=== PATIENT | male | born 1970 | race Caucasian/White ===

== ENCOUNTER 2016-04-03 23:09 | Emergency (ER) | payer OTHER ==
[~2016-04-03] VITALS: Ht 182.9 cm; Wt 104.3 kg
--- NOTE | ~2016-04-03 | EKG ---
[place] [address] [facility] [place] [address] ELECTROCARDIOGRAM REPORT Name: JUAN ANTONIO MUSTAFA 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 : 1970 Requested By: Haylie Ray Order Number: [id number] MD: Juan Antonio Plasencia Measurements Intervals [place] Rate: 89 P: -17 TX: 122 QRS: 34 QRSD: 90 T: 60 QT: 357 QTc: 435 Interpretive Statements Sinus rhythm Low voltage, precordial leads Compared to ECG 02/15/2016 17:41:59 Low QRS voltage now present Sinus tachycardia no longer present Electronically Signed On 04-04-2016 9:32:19 QC MANAGER by Juan Antonio Plasencia [email or web address] <ELECTRONICALLY SIGNED> By: Juan Antonio Plasencia MD, [facility] 04/04/16 0932 2314 13 Juan Antonio Plasencia MD, [facility] /EPI
[~2016-04-03 23:09] MED LIST: ABILIFY 5 MG TAB5 M1 OR; ABILIFY OR; ABILIFY10 MG PO; AKWA TEARS EYE15 ML; ALPRAZOLAM1 M1 PO; AMBIEN 10 MG TA10 MG PO; ASPIR 8181 MG PO; ASPIRIN325; ASPIRIN325 PO; BUDEPRION SR100 MG PO; CARAFATE 1 GM TA1 G1 PO; CARVEDILOL12.5 MG OR; CARVEDILOL6.25 MG PO; CELEXA 20 MG TA20 M1; CELEXA 20 MG TA20 M1 PO; CELEXA10 MG PO; CELEXA40 MG PO; CIPROFLOXACIN500 M3 PO; COREG OR; COREG PO; COUMADIN 4 MG TA4 M1 PO; COUMADIN 5 MG TA5 M1; COUMADIN7.5 MG PO; DESYREL50 MG; DESYREL50 MG PO; DIAZEPAM 5 MG5 M1 PO; EFFIENT10 MG PO; ENOXAPARIN100 MG/11 SUBQ; FLORINEF ACETA0.1 MG PO; HYDROXYZINE PAM50 MG PO; IMDUR 30 MG TAB30 M1 PO; IMDUR 60 MG TAB60 M1 OR; IMDUR 60 MG TAB60 M1 PO; ISOSORBIDE MONO20 MG PO; LEXAPRO20 MG PO; LIPITOR40 MG PO; LISINOPRIL2.5 MG PO; LISINOPRIL5 MG PO; LITHIUM CARBON300 M6 PO; LITHIUM CARBON300 M7; LOPRESSOR 12.12.5 MG PO; NITROGLYCERIN0.4 MG; NITROGLYCERIN0.4 MG SL; NORCO 5-325 TA1 EACH PO; OMEGA-31000 MG; OMEGA-31000 MG PO; OXYCONTIN10 M1 PO; PEPCID40 MG PO; PHENERGAN 25 MG25 M1 PO; PLAVIX 75 MG TA75 M1 PO; PLAVIX 75 MG TA75 MG; PLAVIX 75 MG TA75 MG OR; PLAVIX 75 MG TA75 MG PO; PRADAXA150 MG OR; PRADAXA150 MG PO; PRAVACHOL40 MG; PRAVACHOL40 MG OR; PRILOSEC 20 MG20 MG PO; PRILOSEC PO; PRILOSEC40 MG PO; PROTONIX 20 MG20 M1 PO; PROTONIX40 M1 PO; PROZAC20 MG PO; RANEXA 500 MG500 M1 PO; RANEXA500 MG PO; REMERON15 MG PO; SIMVASTATIN40 MG PO; TRAZODONE 150150 M1 PO; TRAZODONE HCL100 MG PO; WELLBUTRIN XL300 M1 PO; XANAX PO; XANAX XR1 MG; XANAX1 MG PO; ZESTRIL2.5 MG; ZETIA10 MG PO
[2016-04-04] MEDS ORDERED: BENTYL 10 MG CA10 M1 PO (02:06)
[2016-04-04] MEDS ORDERED: PERCOCET 5-3251 EACH PO (02:06)
[2016-04-04] MEDS ORDERED: ONDANSETRON HCL4 M2 PO (02:07)
[2016-04-04] MEDS ORDERED: FLORINEF ACETA0.1 MG PO (02:07)
[2016-04-04] MEDS ORDERED: CARAFATE 11 GM/10 M1 GT (02:07)
[2016-04-04 02:33] LABS: ANION GAP 9 mmol/L (7-16); BUN 12 mg/dL (7-18); CALCIUM 8.8 mg/dL (8.5-10.1); CHLORIDE 104 mmol/L (98-107); CO2 26 mmol/L (21-32); CREATININE 1.1 mg/dL (0.6-1.3); GLUCOSE 125 mg/dL (70-99); POTASSIUM 4.2 mmol/L (3.5-5.1); SODIUM 139 mmol/L (136-145)
[2016-04-04 02:44] LABS: ALBUMIN 3.4 g/dL (3.4-5.0); ALKALINE PHOSPHATASE 73 U/L (46-116); NT-PRO BRAIN NAT PEPTIDE 60 pg/mL (<300); SGOT 19 U/L (15-37); SGPT 24 U/L (30-65); TOTAL BILIRUBIN 0.2 mg/dL (<0.1-1.0); TOTAL PROTEIN 7.3 g/dL (6.4-8.2); TROPONIN-I < 0.04 ng/mL (<0.04-0.07)
[2016-04-04 03:04] LABS: ABSOLUTE NEUTROPHILS 5.1 thou/uL (1.4-8.2); BASOPHILS 0.9 % (0.0-2.0); EOSINOPHILS 2.8 % (0.0-3.0); HEMATOCRIT 30.6 % (42.0-52.0); HEMOGLOBIN 9.6 gm/dL (14.0-18.0); MCH 25.9 pg (26.0-34.0); MCHC 31.4 % (28.0-37.0); MCV 82.4 fL (80.0-100.0); MONOCYTES 11.8 % (1.0-8.0); PLATELET COUNT 258 thou/uL (150-400); POLYS 67.5 % (36.0-66.0); RBC 3.71 mil/uL (4.50-6.00); RDW 20.3 % (10.5-14.5); WBC 7.5 thou/uL (4.0-11.0)
[2016-04-04 03:18] LABS: MANUAL DIFF NO
[2016-04-04 03:48] LABS: APTT 27.2 Seconds (24.5-32.8)
[2016-04-04 04:03] LABS: PROTIME 9.3 Seconds (9.3-11.4)
[2016-04-07] MEDS ORDERED: COUMADIN7.5 MG PO (12:32)
[2016-04-08] MEDS ORDERED: COUMADIN 5 MG TA5 M1 PO (13:08)
[2016-04-08] MEDS ORDERED: ENOXAPARIN100 MG/11 SUBQ (13:08)
[2016-04-08] MEDS ORDERED: CEFUROXIME250 MG PO (13:08)
[2016-04-10] MEDS ORDERED: ASPIR 8181 M1 PO (11:18)
[2016-04-10] MEDS ORDERED: COUMADIN 5 MG TA5 M1 PO (11:24)
== END 2016-04-04 06:51 | disposition home or self-care (01) ==
LOC: ER 23:09
PROVIDERS: Emergency Medicine
DX: R07.89 Other chest pain (principal); Z98.890 Other specified postprocedural states; Z95.5 Presence of coronary angioplasty implant and graft; I10 Essential (primary) hypertension; F32.9 Major depressive disorder, single episode, unspecified; F41.9 Anxiety disorder, unspecified; E78.00 Pure hypercholesterolemia, unspecified; Z86.73 Personal history of transient ischemic attack (TIA), and cerebral infarction without residual deficits; I25.2 Old myocardial infarction; K21.9 Gastro-esophageal reflux disease without esophagitis; Z88.0 Allergy status to penicillin; Z88.8 Allergy status to other drugs, medicaments and biological substances; F17.210 Nicotine dependence, cigarettes, uncomplicated

== ENCOUNTER 2016-05-24 20:29 | Inpatient (IN) | payer OTHER ==
[~2016-05-24] VITALS: Ht 182.9 cm; Wt 108.0 kg
--- NOTE | ~2016-05-24 | TST ---
[facility] [place] [address] TREADMILL STRESS TEST Name: LINDA MUSTAFA Room #: 442-P ADM IN M.R.#: [id number] Admission: 05/24/16 Attend Phys: Keyur Beckham Discharge: Date of : 66 Date of Service: 05/27/16 0930 Report #: [id number] THIS REPORT FOR: //name// CC: Felix Zaldivar MD DATE OF SERVICE: 05/27/2016 EXERCISE STRESS TEST INDICATIONS: Exercise stress test was requested in this patient with a history of coronary artery disease and chest pain. The patient was exercised on a Willard protocol for a pretest heart rate of 58 and blood pressure 154/90. The patient was able to exercise for 8 minutes on a Willard protocol, achieving the peak heart rate of 166, which was greater than 90% of maximum predicted heart rate for the patient's age. His peak blood pressure was 179/74. In recovery, the patient had a heart rate of 82, blood pressure 144/74. The patient actually had chest pain before he began exercising and it did worsen with exercise and was still there during recovery. The patient's resting ECG showed a sinus bradycardia, with no significant ST or T-wave change noted at baseline. With exercise, there were no arrhythmias noted. The patient did develop J-point depression with exercise, but there was no significant ST-segment depression at 80 milliseconds after the J point. IMPRESSION: 1. Adequate exercise tolerance. 2. Chest pain that was present prior to exercise and continued during the duration of exercise. 3. No ischemic ST-segment changes noted. 4. Negative exercise stress test for myocardial ischemia. By: 0930 1050 Cezar Mejia MD, FACC /nt
--- NOTE | ~2016-05-24 | HC ---
[facility] [place] [address] CONSULTATION Name: LINDA MUSTAFA Room #: 442-P [facility] IN M.R.#: [id number] Admission: 05/24/16 Attend Phys: Felix Retana MD Discharge: 05/27/16 Date of : 66 Report #: [id number] THIS REPORT FOR: //name// CC: Felxi Zaldivar MD DATE OF SERVICE: 05/25/2016 HISTORY OF PRESENT ILLNESS: The patient is a 45-year-old male with multiple medical problems, on anticoagulation therapy for a history of coronary artery disease and multiple stents as well as a history of AFib and possible clotting disorder. Patient reports several day history of melenic type stools. He also had an episode of nausea and vomiting, which he described as coffee ground type emesis. He does report some mild mid epigastric abdominal pain. He is on aspirin and Coumadin usually, however, when he began having black stools, he started holding his Coumadin approximately 4 days ago. He is on Protonix on a regular basis. He denies any dysphagia or odynophagia. He denies any significant heartburn on his Protonix. He also has been having increasing chest pain, reportedly took nitroglycerin x 3 without any improvement. He did take a Lovenox injection last p.m., he apparently has undergone multiple EGDs and colonoscopies in the past. The most recent one per Vivien ABRAHAM, our nurse practitioner's consultation note, which was done in April of this year, stated EGD of colon was performed in 01/2016 at [facility] by my partner, Dr. Reji Wallace, apparently EGD showed no abnormalities, however, 2 Hemoclips were seen in the body of the stomach. There was no evidence of bleeding. 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 Colonoscopy at that time was negative. Prior tattoo in the proximal transverse colon was noted, but no residual polyp. Of note, the patient has multiple family members reportedly with a history of colon cancer. At that time, he was recommended a repeat colonoscopy in 3 years. He denies any diarrhea. No shortness of breath at this time. No fevers or chills. Last hospitalization, his stool is Hemoccult negative. His hemoglobin was 10.5 range and the plan was to observe. PAST MEDICAL HISTORY: Coronary artery disease, history of stents as well as peripheral vascular disease with a stent in his left femoral artery, previous history of CVA and TIAs, possible history of Factor V Leiden, atrial fibrillation, hypertension, depression, anxiety, previous history of multiple MIs, PFO closure in 2011. He continues to smoke at this time. History of PEs and DVTs, history of GI bleed, hypercholesterolemia, previous history of polysubstance abuse, gastroesophageal reflux disease, possible history of Munchausen syndrome, previous tonsillectomy and appendectomy. ALLERGIES: PENICILLIN, STATINS. [address] [address] CONSULTATION Name: MOONLINDA Room #: 442-P DIS IN M.R.#: [id number] Admission: 05/24/16 Attend Phys: Felix Retana MD Discharge: 05/27/16 Date of : 66 Report #: [id number] FAMILY HISTORY: He states multiple family members including mother, 2 grandparents and an uncle with colon cancer. SOCIAL HISTORY: He has a long history of smoking and he continues to smoke at this time. He does consume alcohol on a regular basis as well. MEDICATIONS: On admission, Lovenox is 80, Imdur, Nitrostat, Coreg, Zestril, trazodone, Prozac, Remeron, alprazolam, Protonix, aspirin 81 mg, Coumadin, although this has been held for the last 4 days per the patient. REVIEW OF SYSTEMS: As per HPI. PHYSICAL EXAMINATION: VITAL SIGNS: Temperature is 97.7, pulse 66, blood pressure 125/81, respiratory rate is 16. GENERAL: He is alert and oriented x 3 in no acute distress. HEENT: Sclerae nonicteric. Oropharynx clear. NECK: Supple, without lymphadenopathy. CARDIOVASCULAR: Regular rate and rhythm. CHEST: Clear to auscultation bilaterally. ABDOMEN: Soft. He is minimally tender to palpation diffusely. Nondistended, normoactive bowel sounds. EXTREMITIES: No cyanosis, clubbing or edema. LABORATORY DATA: Sodium 136, potassium 4.3, chloride 104, bicarbonate 25, BUN 16, creatinine 1.1, AST 33, total bilirubin 0.2, alkaline phosphatase 74, ALT is 25, albumin 3.6. Troponin is less than 0.04 x 3 since admission. INR 1.0. WBC is 8.1, hemoglobin 10.0, yesterday was 10.9. In looking back in the computer, his hemoglobin has been in the 10 range for a long period of time. MCV is 81.3, platelet count of 273. Chest x-ray on admission, no acute process. ASSESSMENT AND PLAN: Chest pain with recent dark stools, possible history of coffee-ground emesis suggesting the possibility of an upper gastrointestinal bleed. I had a long discussion today with the patient. Obviously, he has an extensive history as well as multiple endoscopies in the past. Since the patient has had melenic type stools recently as well as chest pain and has been on anticoagulation therapy, would recommend initially proceeding with an upper endoscopy tomorrow. We would make the patient n.p.o. after midnight, continuing PPI therapy and monitoring hemoglobin, which appears to be stable at this time. If upper endoscopy is negative, would consider an M2 capsule as apparently he has not had this in the past. There is a questionable history of duodenal adenoma, although this was reportedly negative on last upper endoscopy approximately 6 months ago. The patient just had a colonoscopy in January at [address] [place] [address] CONSULTATION Name: LINDA MUSTAFA SILVANA Room #: 442-P [facility] IN M.R.#: [id number] Admission: 05/24/16 Attend Phys: Felix Retana MD Discharge: 05/27/16 Date of : 66 Report #: [id number] that time as well, which was clear. He does have multiple family history, but recommended repeat colonoscopy in 3 years from that time. We will make further recommendations after upper endoscopy. Thank you for allowing me to participate in his care. <ELECTRONICALLY SIGNED> By: Leopoldo Steinberg MD 05/28/16 0829 1327 1522 Leopoldo Steinberg MD /nt
--- NOTE | ~2016-05-24 | HC ---
[facility] [place] [address] CONSULTATION Name: LINDA MUSTAFA Room #: 442-P ADM IN M.R.#: [id number] Admission: 05/24/16 Attend Phys: Felix Retana MD Discharge: Date of : 66 Report #: [id number] THIS REPORT FOR: //name// CC: Felix Zaldivar MD DATE OF SERVICE: 05/25/2016 PRIMARY CARE PHYSICIAN: Anselmo Zaldivar M.D. HISTORY OF PRESENT ILLNESS: The patient is a 45-year-old single white male who I was asked to see in the hospital today after he complained of chest pain. The patient apparently had his first coronary stent placed in his LAD in [address] [facility]. In 2009, he presented with ventricular tachycardia. Heart catheterization showed the LAD stent was occluded. He underwent a repeat intervention with placement of a new stent. He had a repeat heart catheterization in 2014 here at [facility] that showed no restenosis of the stent. I actually performed another cardiac catheterization here at [facility] in 12/2015 when he presented again with chest pain. His heart catheterization in 12/2015 was performed from the right femoral artery since I could not get a sheath in the right radial artery. This showed no restenosis of the stent with an ejection fraction of 60%. He had an echocardiogram in 02/2016 that showed normal left ventricular function and left atrial enlargement. No evidence of [id number]-pg-xqhu shunt. He was actually just admitted to [facility] last month with apparent hematemesis. He was felt to be intoxicated at that time. He has a previous history of GI bleeding. He has had previous GI workup that apparently showed an AV malformation. He has colon polyps as well. The patient has been followed by GI here at [facility]. He apparently had a colonoscopy this past year. It showed no evidence of colon cancer. EGD last fall showed no significant bleeding. He has actually been diagnosed with Munchausen's in the past. 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 He stays fairly active and continues to play golf. Apparently yesterday, he was walking his dog when he felt a pressure in his chest, became nauseated, diaphoretic and short of breath. He took 3 nitroglycerins, it did not help. He finally came to the Emergency Room and was admitted. He apparently had an episode of emesis that was coffee ground like. He apparently has been having black stools and recently was taken off of warfarin and aspirin. He does get short of breath with exertion, notes occasional palpitations, but no syncope or edema. He has had no fever or cough. PAST MEDICAL HISTORY: Otherwise significant for tonsillectomy. Known history of PFO with previous percutaneous closure by ____ here at [facility]. He has a history of hypertension, hyperlipidemia and depression. He [facility] [address] [place] [address] CONSULTATION Name: LINDA MUSTAFA Room #: 442-P ADM IN M.R.#: [id number] Admission: 05/24/16 Attend Phys: Felix Retana MD Discharge: Date of : 66 Report #: [id number] has a history of Quakake's disease. He has had previous thromboembolic disease, factor V Leiden and has an IVC filter in place. MEDICATIONS: On admission last night consisted of Zetia, Imdur, carvedilol, lisinopril, oxycodone, trazodone, Prozac, Remeron, Xanax and Protonix. ALLERGIES: He is intolerant to STATIN DRUGS which led to rhabdomyolysis as well as PENICILLIN. FAMILY HISTORY: His father had a heart attack. SOCIAL HISTORY: He is . Smokes several cigarettes a day. Rarely drinks alcohol. REVIEW OF SYSTEMS: He has had a previous TIA. No asthma. No liver disease. No kidney disease. He has a history of depression, sees a psychiatrist. PHYSICAL EXAMINATION: VITAL SIGNS: Blood pressure is 100/60 and pulse 60. He is afebrile. HEENT: He is anicteric. Conjunctivae are pink. Mucous membranes are moist. NECK: Neck veins are nondistended. No carotid bruits. CHEST: Clear to auscultation. CARDIOVASCULAR: Regular rate and rhythm. ABDOMEN: Soft and nontender. EXTREMITIES: Had no edema. Posterior tibial pulses 2+ bilaterally. SKIN: Warm and dry. NEUROLOGIC: Nonfocal. LYMPH: No adenopathy. MUSCULOSKELETAL: No joint effusions. DIAGNOSTIC DATA: He had a chest x-ray in the Emergency Room last night that showed normal heart size, clear lung simms. He actually had a CT scan of the chest in March using the PE protocol that showed scattered pulmonary emboli, coronary artery disease and evidence of PFO closure. Venous duplex scan in March showed no DVT. The patient apparently had an electrocardiogram in the Emergency Room last night, reviewed, that shows a sinus rhythm but no ST or T-wave change. LABORATORY DATA: His sodium was 136, potassium was 4.3. BUN is 16, creatinine 1.1 and glucose 94. Liver function studies have been normal. Troponin is 0.04. His urine drug screen was positive for opiates in April. White blood cell count 8.1 and hemoglobin is 10.0, which is down from 12 a month ago. IMPRESSION AND RECOMMENDATIONS: 1. Chest pain. Previous stent in the left anterior descending. Heart [facility] [address] [place] [address] CONSULTATION Name: MOONLINDA SILVANA Room #: 442-P ADM IN M.R.#: [id number] Admission: 05/24/16 Attend Phys: Felix Retana MD Discharge: Date of : 66 Report #: [id number] catheterization done last December showed no significant restenosis of the stent. I would recommend a treadmill test without imaging. 2. Complain of gastrointestinal bleeding. The patient has had several gastrointestinal workups in the past. 3. Hypertension. The patient has been on a beta jason and NORMAN inhibitor. 4. Hyperlipidemia. The patient cannot tolerate statin drugs. He has been taking Zetia. 5. Previous transient ischemic attack with closure of a patent foramen ovale percutaneously. Echocardiogram done last year showed no evidence of a shunt. 6. History of depression. The patient has been seen by psychiatry in the past. 7. History of Quakake's disease. The patient has been on Florinef in the past. 8. Factor V Leiden. The patient has been anticoagulated in the past, although he is currently off of anticoagulation because of his history of gastrointestinal bleeding. 9. Tobacco abuse. Unfortunately, the patient continues to smoke. <ELECTRONICALLY SIGNED> By: Cezar Mejia MD, FACC 05/26/16 0905 1945 0229 Cezar Mejia MD, [facility] /nt
--- NOTE | ~2016-05-24 | EKG ---
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: DONNELL : 1970 Requested By: Haylie Ray Order Number: [id number] MD: Juan Antonio Plasencia Measurements Intervals [place] Rate: 85 P: 48 [place]: 148 QRS: 39 QRSD: 98 T: 66 QT: 377 QTc: 449 Interpretive Statements Sinus rhythm Probable left atrial enlargement Compared to ECG 04/25/2016 18:05:19 No significant changes Electronically Signed On 05-25-2016 15:22:32 CDT by Juan Antonio Plasencia [email or web address] <ELECTRONICALLY SIGNED> By: Juan Antonio Plasencia MD, [facility] 05/25/16 1522 32 32 Juan Antonio Plasencia MD, [facility] /EPI
--- NOTE | ~2016-05-24 | S ---
[facility] [place] [address] SURGICAL PATH RPT PROCEDURE Name: JUAN ANTONIO MUSTAFA Room #: 442-P ADM IN M.R.#: [id number] Admission: 05/24/16 Date of : 66 Discharge: Report #: [id number] Path Case #: [id number] PATHOLOGY REPORT COLLECTION DATE: 05/26/2016 RECEIVED DATE: 05/26/2016 SUBMITTING PHYS: Dr. Altaf Thompson OTHER PHYS: Dr. Mazin Washington SPECIMEN(S) RECEIVED: A.Ulcer stomach body * * * * * * * * * * * * FINAL DIAGNOSIS: Gastric mucosa, ulcer stomach body, endoscopic biopsy: - No active ulcer identified, focal hemorrhage present. - Gastric mucosa showing features of moderate reactive gastropathy. - Negative for intestinal metaplasia or atrophy. - Negative for Helicobacter pylori. COMMENT: Helicobacter pylori immunohistochemical stain performed on block A1 negative. (IUV:csd; d/t: 05/27/2016) PATHOLOGIST: Arianna Fowler M.D. REPORT ELECTRONICALLY SIGNED BY: Arianna Fowler M.D. DATE/TIME: 05/27/2016 14:33 * * * * * * * * * * * * GROSS PATHOLOGY: Received in formalin labeled "Juan Antonio Mustafa, ulcer stomach body," are three segments of tobar soft tissue measuring 0.8 x 0.7 x 0.1 cm in aggregate dimensions and ranging from 0.3 to 0.5 cm in maximum dimension. The specimen is submitted entirely in cassette A1. (CAA; 05/26/2016) CLINICAL HISTORY: Melena, gastric ulcer INITIAL CPT CODE(S): A; 55404, 33894 Professional services performed by [facility] at [facility] [address] , [place] [address] [facility] [address] [place] [address] SURGICAL PATH RPT PROCEDURE Name: JUAN ANTONIO MUSTAFA Room #: 442-P ADM IN M.R.#: [id number] Admission: 05/24/16 Date of : 66 Discharge: Report #: [id number] Path Case #: [id number] Technical services performed by [facility] at [address] [place] [address], [facility] [address] [place] [address]. [facility] [address] [place] [address] PHONE: [phone] DIRECTOR: Sukhi Enriquez M.D. * * * END OF REPORT * * *
--- NOTE | ~2016-05-24 | P ---
[facility] [place] [address] PROCEDURE REPORT Name: LINDA MSUTAFA Room #: 442-P ADM IN M.R.#: [id number] Admission: 05/24/16 Attend Phys: Felix Retana MD Discharge: Date of : 66 Report #: [id number] THIS REPORT FOR: //name// CC: Felix Retana BRIEF HISTORY: The patient is a 45-year-old male with multiple medical complaints with anemia and anticoagulation. He reports recent melanotic stools. PREOPERATIVE DIAGNOSIS: Melena. POSTOPERATIVE DIAGNOSES: A 5- to 6-mm benign-appearing gastric ulcer. MEDICATIONS: Deep sedation with propofol per anesthesia. SPECIMEN: Biopsies of ulcer. ESTIMATED BLOOD LOSS: 3 mL. PROCEDURE: EGD with biopsy. FINDINGS: Prior to propofol sedation, the procedure of upper endoscopy discussed with the patient as well as potential risks and its complications. He indicates he understands and desires to proceed. DESCRIPTION OF PROCEDURE: With the patient in the left lateral decubitus position, a Fuji video endoscope was inserted in the cervical esophagus under direct vision without difficulty. Examination of this organ through its entire length revealed normal esophageal mucosa down to the squamocolumnar junction. Squamocolumnar junction was noted to be within normal limits. Hiatus hernia was not seen. There was no evidence of blood within the esophagus. The scope was advanced in the stomach, which was examined on end views as well as retroflexed views. There was no blood in the stomach. Examination of the stomach on end views as well as retroflexed views revealed normal mucosa. On retroflexion, no mass lesions were seen. However, 2 hemostatic clips were seen in the proximal stomach. These were described on endoscopy report, I believe, last December or January. However, just distal lateral area on the posterior wall of the body of the stomach was an elliptical 5- to 6-mm ulcer that had a clean base. The edges was slightly friable to touch. It had a benign appearance. No mass effect was seen. Active bleeding was not seen. Clot was not seen. Exposed vessels were not seen. Biopsies obtained of the edges of the ulcer crater. Examination of the distal stomach revealed normal mucosa. The pylorus, duodenal bulb and postbulbar sweep down to the ligament of Treitz was inspected and noted to be within normal limits. 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 No polyps, masses, AVMs or blood was seen anywhere in the duodenum today. The villous pattern was completely normal. In particular, in the second portion of the duodenum, no polypoid or mass lesions were seen. At [address] [address] PROCEDURE REPORT Name: MOONLINDA WOLSEY Room #: 442-P ADM IN M.R.#: [id number] Admission: 05/24/16 Attend Phys: Felix Retana MD Discharge: Date of : 66 Report #: [id number] that point, the scope was slowly withdrawn and careful circumferential views confirmed the above findings. The patient tolerated the procedure well. DISPOSITION: The patient with melanotic stools. He had been anticoagulated. A small is noted as described above. We will follow up on the biopsies. He should continue proton pump inhibitor. It is noted that he does take an aspirin. We will follow up on biopsies and make further recommendations. We will also obtain a gastrin level. I advised the patient to avoid use of nonsteroidals. This ulcer certainly may be the site of melena in this patient. <ELECTRONICALLY SIGNED> By: Altaf Thompson MD 05/27/16 1224 1256 1348 Altaf Thompson MD /nt
[~2016-05-24 20:29] MED LIST changes: +ASPIR 8181 M1 PO; +BENTYL 10 MG CA10 M1 PO; +CARAFATE 11 GM/10 M1 GT; +CEFUROXIME250 MG PO; +COUMADIN 5 MG TA5 M1 PO; +ONDANSETRON HCL4 M2 PO; +PERCOCET 5-3251 EACH PO
[2016-05-24 21:12] LABS: ABSOLUTE NEUTROPHILS 5.6 thou/uL (1.4-8.2); BASOPHILS 0.6 % (0.0-2.0); EOSINOPHILS 2.8 % (0.0-3.0); HEMATOCRIT 33.1 % (42.0-52.0); HEMOGLOBIN 10.9 gm/dL (14.0-18.0); LYMPHOCYTES 16.3 % (24.0-44.0); MCH 26.7 pg (26.0-34.0); MCHC 32.8 g/dL (28.0-37.0); MCV 81.3 fL (80.0-100.0); MONOCYTES 11.5 % (1.0-8.0); PLATELET COUNT 273 thou/uL (150-400); POLYS 68.8 % (36.0-66.0); RBC 4.08 mil/uL (4.50-6.00); RDW 24.2 % (10.5-14.5); WBC 8.1 thou/uL (4.0-11.0)
[2016-05-24 21:14] LABS: MANUAL DIFF NO
[2016-05-24 21:16] LABS: ANION GAP 7 mmol/L (7-16); BUN 16 mg/dL (7-18); CALCIUM 8.9 mg/dL (8.5-10.1); CHLORIDE 104 mmol/L (98-107); CO2 25 mmol/L (21-32); CREATININE 1.1 mg/dL (0.6-1.3); GLUCOSE 94 mg/dL (70-99); POTASSIUM 4.3 mmol/L (3.5-5.1); SODIUM 136 mmol/L (136-145)
[2016-05-24 21:27] LABS: ALBUMIN 3.6 g/dL (3.4-5.0); ALKALINE PHOSPHATASE 74 U/L (46-116); NT-PRO BRAIN NAT PEPTIDE 108 pg/mL (<300); SGOT 33 U/L (15-37); SGPT 25 U/L (30-65); TOTAL BILIRUBIN 0.2 mg/dL (<0.1-1.0); TOTAL PROTEIN 7.7 g/dL (6.4-8.2); TROPONIN-I < 0.04 ng/mL (<0.04-0.07)
[2016-05-24 22:13] LABS: APTT 25.6 Seconds (24.5-32.8); PROTIME 9.9 Seconds (9.3-11.4)
[2016-05-25 03:41] LABS: ANISOCYTOSIS 3+; MACROCYTES 2+; MICROCYTES 1+; POLYCHROMASIA 2+
[2016-05-25 03:44] LABS: PLATELET ESTIMATE NORMAL
[2016-05-25 09:09] LABS: HEMATOCRIT 30.4 % (42.0-52.0)
[2016-05-25 09:22] LABS: PROTIME 10.2 Seconds (9.3-11.4)
[2016-05-26 06:06] LABS: HEMATOCRIT 31.1 % (42.0-52.0); HEMOGLOBIN 10.1 gm/dL (14.0-18.0); MCH 26.5 pg (26.0-34.0); MCHC 32.4 g/dL (28.0-37.0); MCV 81.9 fL (80.0-100.0); RBC 3.8 mil/uL (4.50-6.00); WBC 5.3 thou/uL (4.0-11.0)
[2016-05-26 06:22] LABS: CALCIUM 8.3 mg/dL (8.5-10.1)
[2016-05-27 05:36] LABS: HEMATOCRIT 30.7 % (42.0-52.0); HEMOGLOBIN 10.2 gm/dL (14.0-18.0); MCH 26.7 pg (26.0-34.0); MCHC 33.1 g/dL (28.0-37.0); MCV 80.6 fL (80.0-100.0); RBC 3.81 mil/uL (4.50-6.00); RDW 24.1 % (10.5-14.5)
[2016-05-27] MEDS ORDERED: NEXIUM40 MG PO (10:06)
== END 2016-05-27 16:23 | disposition home or self-care (01) | DRG 383 ==
LOC: ER 20:29 → EROBS 22:56 → 4S 22:56
PROVIDERS: Emergency Medicine; Family Medicine; Nurse Practitioner; Specialist
PROC: 0DB68ZX Excision of Stomach, Via Natural or Artificial Opening Endoscopic, Diagnostic (ICD-10-PCS; principal; 2016-05-26)
DX: K25.9 Gastric ulcer, unspecified as acute or chronic, without hemorrhage or perforation (principal); I26.99 Other pulmonary embolism without acute cor pulmonale; E27.1 Primary adrenocortical insufficiency; D68.51 Activated protein C resistance; I82.409 Acute embolism and thrombosis of unspecified deep veins of unspecified lower extremity; R07.9 Chest pain, unspecified; K92.1 Melena; I25.10 Atherosclerotic heart disease of native coronary artery without angina pectoris; I48.0 Paroxysmal atrial fibrillation; I73.9 Peripheral vascular disease, unspecified; F17.210 Nicotine dependence, cigarettes, uncomplicated; F41.9 Anxiety disorder, unspecified; I10 Essential (primary) hypertension; E78.5 Hyperlipidemia, unspecified; F32.9 Major depressive disorder, single episode, unspecified; K21.9 Gastro-esophageal reflux disease without esophagitis; E66.9 Obesity, unspecified; I25.2 Old myocardial infarction; Z85.038 Personal history of other malignant neoplasm of large intestine; Z79.01 Long term (current) use of anticoagulants; Z86.73 Personal history of transient ischemic attack (TIA), and cerebral infarction without residual deficits; Z87.11 Personal history of peptic ulcer disease; Z95.5 Presence of coronary angioplasty implant and graft; Z91.14 Patient's other noncompliance with medication regimen; Z88.0 Allergy status to penicillin; Z88.8 Allergy status to other drugs, medicaments and biological substances; Z90.49 Acquired absence of other specified parts of digestive tract; Z79.899 Other long term (current) drug therapy; Z87.898 Personal history of other specified conditions; Z68.32 Body mass index [BMI] 32.0-32.9, adult
CPT/HCPCS: 10100; 62110; 62900; 70005

== ENCOUNTER 2016-06-22 16:37 | Emergency (ER) | payer OTHER ==
[~2016-06-22] VITALS: Ht 182.9 cm; Wt 108.9 kg
--- NOTE | ~2016-06-22 | EKG ---
[address] [address] ELECTROCARDIOGRAM REPORT Name: JUAN ANTONIO MUSTAFA 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 : 1970 Requested By: Betty Ewing Order Number: [id number] MD: Juan Antonio Plasencia Measurements Intervals [place] Rate: 96 P: 36 [place]: 137 QRS: 31 QRSD: 87 T: 57 QT: 355 QTc: 449 Interpretive Statements Sinus rhythm No significant abnormality Compared to ECG 06/21/2016 11:18:13 No significant changes Electronically Signed On 06-23-2016 8:34:45 CDT by Juan Antonio Plasencia [email or web address] <ELECTRONICALLY SIGNED> By: Juan Antonio Plasencia MD, [facility] 06/23/16 0834 [facility] Juan Antonio Plasencia MD, FACC /EPI
[~2016-06-22 16:37] MED LIST changes: +NEXIUM40 MG PO
[2016-06-22 18:06] LABS: HEMATOCRIT 31.2 % (42.0-52.0); HEMOGLOBIN 10.4 gm/dL (14.0-18.0); MANUAL DIFF YES; MCH 26.4 pg (26.0-34.0); MCHC 33.2 g/dL (28.0-37.0); MCV 79.4 fL (80.0-100.0); PLATELET COUNT 432 thou/uL (150-400); RBC 3.93 mil/uL (4.50-6.00); RDW 22.6 % (10.5-14.5); WBC 8.9 thou/uL (4.0-11.0)
[2016-06-22 18:19] LABS: ANION GAP 11 mmol/L (7-16); BUN 11 mg/dL (7-18); CALCIUM 8.6 mg/dL (8.5-10.1); CHLORIDE 106 mmol/L (98-107); CO2 23 mmol/L (21-32); GLUCOSE 93 mg/dL (74-106); POTASSIUM 4.1 mmol/L (3.5-5.1); SODIUM 140 mmol/L (136-145)
[2016-06-22 18:21] LABS: APTT 26.3 Seconds (24.5-32.8); INR 1.1; PROTIME 11.1 Seconds (9.3-11.4)
[2016-06-22 18:26] LABS: ABSOLUTE NEUTROPHILS 6.8 thou/uL (1.4-8.2); ALBUMIN 3.7 g/dL (3.4-5.0); ALKALINE PHOSPHATASE 71 U/L (46-116); ATYPICAL LYMPHS 1 %; NUCLEATED RBCS 1 /100WBC; SGOT 21 U/L (15-37); SGPT 22 U/L (30-65); TOTAL BILIRUBIN 0.4 mg/dL (<0.1-1.0); TOTAL CELL COUNT 100; TOTAL PROTEIN 7.7 g/dL (6.4-8.2); TROPONIN-I < 0.04 ng/mL (<0.04-0.07)
[2016-06-22 18:27] LABS: ANISOCYTOSIS 1+; MICROCYTES 1+; POLYCHROMASIA OCCASIONAL
[2016-06-22] MEDS ORDERED: ONDANSETRON HCL4 M2 PO (21:16)
[2016-06-22] MEDS ORDERED: CARAFATE 1 GM TA1 G1 PO (21:16)
== END 2016-06-22 21:42 | disposition home or self-care (01) ==
LOC: ER 16:37
PROVIDERS: Physician Assistant
DX: R07.89 Other chest pain (principal); R19.7 Diarrhea, unspecified; R11.2 Nausea with vomiting, unspecified; D64.89 Other specified anemias; R10.12 Left upper quadrant pain; R10.32 Left lower quadrant pain; Z98.890 Other specified postprocedural states; Z86.73 Personal history of transient ischemic attack (TIA), and cerebral infarction without residual deficits; I48.91 Unspecified atrial fibrillation; F32.9 Major depressive disorder, single episode, unspecified; F41.9 Anxiety disorder, unspecified; Z95.9 Presence of cardiac and vascular implant and graft, unspecified; K21.9 Gastro-esophageal reflux disease without esophagitis; I25.2 Old myocardial infarction; Z88.0 Allergy status to penicillin; Z88.8 Allergy status to other drugs, medicaments and biological substances; F17.210 Nicotine dependence, cigarettes, uncomplicated; F10.99 Alcohol use, unspecified with unspecified alcohol-induced disorder

== ENCOUNTER 2016-07-16 09:19 | Emergency (ER) | payer OTHER ==
[~2016-07-16] VITALS: Ht 182.9 cm; Wt 108.9 kg
--- NOTE | ~2016-07-16 | EKG ---
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
[2016-07-16] MEDS ORDERED: PERCOCET 5-3251 EACH PO (09:43)
[2016-07-16] MEDS ORDERED: OXYCONTIN10 M1 PO (09:43)
[2016-07-16 09:50] LABS: HEMATOCRIT 30.7 % (42.0-52.0); HEMOGLOBIN 10.1 gm/dL (14.0-18.0); MCH 25.9 pg (26.0-34.0); MCV 78.6 fL (80.0-100.0); PLATELET COUNT 375 thou/uL (150-400); RDW 22.6 % (10.5-14.5)
[2016-07-16 09:51] LABS: MANUAL DIFF YES
[2016-07-16 09:55] LABS: CALCIUM 8.7 mg/dL (8.5-10.1); CREATININE 0.9 mg/dL (0.7-1.3); POTASSIUM 4.1 mmol/L (3.5-5.1)
[2016-07-16 10:04] LABS: APTT 43.3 Seconds (24.5-32.8); INR 2.2; PROTIME 22.8 Seconds (9.3-11.4)
[2016-07-16 10:06] LABS: ALBUMIN 3.7 g/dL (3.4-5.0); TOTAL BILIRUBIN 0.5 mg/dL (<0.1-1.0); TROPONIN-I 0.04 ng/mL (<0.04-0.07)
[2016-07-16 10:20] LABS: TOTAL PROTEIN 7.3 g/dL (6.4-8.2)
[2016-07-16 10:56] LABS: ABSOLUTE NEUTROPHILS 5.4 thou/uL (1.4-8.2); TOTAL CELL COUNT 100
[2016-07-16 10:57] LABS: ANISOCYTOSIS 2+; POLYCHROMASIA OCCASIONAL
[2016-07-16 11:26] LABS: URINE BILIRUBIN NEGATIVE (Negative); URINE BLOOD NEGATIVE (Negative); URINE COLOR YELLOW; URINE GLUCOSE-RANDOM* NEGATIVE (Negative); URINE KETONES NEGATIVE (Negative); URINE LEUKOCYTES-REFLEX NEGATIVE (Negative); URINE PROTEIN (DIPSTICK) NEGATIVE (Negative); URINE SPECIFIC GRAVITY 1.015 (1.003-1.035)
== END 2016-07-16 14:45 | disposition home or self-care (01) ==
LOC: ER 09:19
PROVIDERS: Physician Assistant
DX: R07.89 Other chest pain (principal); D64.89 Other specified anemias; K92.2 Gastrointestinal hemorrhage, unspecified; Z98.890 Other specified postprocedural states; Z86.73 Personal history of transient ischemic attack (TIA), and cerebral infarction without residual deficits; I48.91 Unspecified atrial fibrillation; F32.9 Major depressive disorder, single episode, unspecified; F41.9 Anxiety disorder, unspecified; I25.2 Old myocardial infarction; E78.00 Pure hypercholesterolemia, unspecified; Z95.5 Presence of coronary angioplasty implant and graft; K21.9 Gastro-esophageal reflux disease without esophagitis; Z88.0 Allergy status to penicillin; Z88.8 Allergy status to other drugs, medicaments and biological substances; F17.210 Nicotine dependence, cigarettes, uncomplicated; F10.99 Alcohol use, unspecified with unspecified alcohol-induced disorder

== ENCOUNTER 2016-08-10 10:26 | Emergency (ER) | payer OTHER ==
[~2016-08-10] VITALS: Ht 182.9 cm; Wt 106.6 kg
--- NOTE | ~2016-08-10 | EKG ---
[address] [address] ELECTROCARDIOGRAM REPORT Name: LINDA MUSTAFA 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 Khan : 1970 Requested By: Jose Angel Mohan Order Number: [id number] MD: Jose Elias Kearns Measurements Intervals [place] Rate: 91 P: 45 [place]: 139 QRS: 41 QRSD: 99 T: 80 QT: 373 QTc: 459 Interpretive Statements Sinus rhythm Probable left atrial enlargement Compared to ECG 07/26/2016 18:07:15 Sinus tachycardia no longer present Poor R-wave progression no longer present Electronically Signed On 08-10-2016 20:25:44 CDT by Jose Elias Kearns [email or web address] <ELECTRONICALLY SIGNED> By: Jose Elias Kearns MD 08/10/162024 31 31 Jose Elias Kearns MD /ANGEL
[2016-08-10 11:09] LABS: HEMATOCRIT 34.6 % (42.0-52.0); HEMOGLOBIN 11.3 gm/dL (14.0-18.0); MCHC 32.6 g/dL (28.0-37.0); MCV 85.9 fL (80.0-100.0); PLATELET COUNT 372 thou/uL (150-400); RBC 4.02 mil/uL (4.50-6.00); RDW 27.1 % (10.5-14.5); WBC 10.2 thou/uL (4.0-11.0)
[2016-08-10 11:18] LABS: MANUAL DIFF YES
[2016-08-10 11:22] LABS: ANION GAP 12 mmol/L (7-16); BUN 16 mg/dL (7-18); CALCIUM 8.9 mg/dL (8.5-10.1); CHLORIDE 106 mmol/L (98-107); CO2 24 mmol/L (21-32); CREATININE 1.3 mg/dL (0.7-1.3); GLUCOSE 99 mg/dL (74-106); POTASSIUM 3.7 mmol/L (3.5-5.1); SODIUM 142 mmol/L (136-145)
[2016-08-10 11:25] LABS: APTT 25.9 Seconds (24.5-32.8)
[2016-08-10 11:36] LABS: NT-PRO BRAIN NAT PEPTIDE 188 pg/mL (<300); TROPONIN-I < 0.04 ng/mL (<0.04-0.07)
[2016-08-10 12:28] LABS: ABSOLUTE NEUTROPHILS 7.5 thou/uL (1.4-8.2); TOTAL CELL COUNT 100
[2016-08-10 12:29] LABS: ANISOCYTOSIS 3+; MACROCYTES 1+; MICROCYTES 1+; POLYCHROMASIA SLIGHT
== END 2016-08-10 14:48 | disposition home or self-care (01) ==
LOC: ER 10:26
PROVIDERS: Nurse Practitioner
DX: R07.9 Chest pain, unspecified (principal); I48.91 Unspecified atrial fibrillation; F32.9 Major depressive disorder, single episode, unspecified; I10 Essential (primary) hypertension; F41.9 Anxiety disorder, unspecified; I25.2 Old myocardial infarction; E78.00 Pure hypercholesterolemia, unspecified; K21.9 Gastro-esophageal reflux disease without esophagitis; F17.210 Nicotine dependence, cigarettes, uncomplicated; F19.10 Other psychoactive substance abuse, uncomplicated; Z90.89 Acquired absence of other organs; Z90.49 Acquired absence of other specified parts of digestive tract; Z95.5 Presence of coronary angioplasty implant and graft; Z86.73 Personal history of transient ischemic attack (TIA), and cerebral infarction without residual deficits; Z86.718 Personal history of other venous thrombosis and embolism; Z86.711 Personal history of pulmonary embolism; Z88.0 Allergy status to penicillin; Z88.8 Allergy status to other drugs, medicaments and biological substances

== ENCOUNTER 2016-08-18 19:21 | Emergency (ER) | payer OTHER ==
[~2016-08-18] VITALS: Ht 182.9 cm; Wt 113.4 kg
--- NOTE | ~2016-08-18 | EKG ---
[place] [address] [facility] [address] [place] [place] [address] ELECTROCARDIOGRAM REPORT Name: JUAN ANTONIO MUSTAFA [id number] Admission: 08/18/16 Attend Phys: Discharge: 08/19/16 Date of : 66 Report #: [id number] THIS REPORT FOR: //name// [facility] ED Test Date: 2016-08-18 Test Time: 20:04:06 Pat Name: JUAN ANTONIO MUSTAFA Department: Room: Gender: [employer] T[employer] Developer: FLORENCIA : 1970 Requested By: Anjum Leger Order Number: [id number] MD: Juan Antonio Plasencia Measurements Intervals [place] Rate: 84 P: -6 [place]: 159 QRS: 7 QRSD: 91 T: 34 QT: 374 QTc: 443 Interpretive Statements Sinus rhythm Poor R wave progression Compared to ECG 08/10/2016 10:32:46 No significant changes Electronically Signed On 08-19-2016 8:56:31 CDT by Juan Antonio Plasencia [email or web address] <ELECTRONICALLY SIGNED> By: Juan Antonio Plasencia MD, [facility] 08/19/16 0856 03 03 Juan Antonio Plasencia MD, FACC /EPI
[2016-08-18] MEDS ORDERED: PAXIL10 MG PO (19:37)
[2016-08-18 20:04] LABS: URINE BILIRUBIN NEGATIVE (Negative); URINE BLOOD NEGATIVE (Negative); URINE COLOR YELLOW; URINE GLUCOSE-RANDOM* NEGATIVE (Negative); URINE KETONES NEGATIVE (Negative); URINE NITRITE NEGATIVE (Negative); URINE PROTEIN (DIPSTICK) NEGATIVE (Negative); URINE UROBILINOGEN 0.2 E.U./dl (0.2-1.0)
[2016-08-18 20:14] LABS: AMP/METHAMP Negative (Negative); BARBITURATES Negative (Negative); BENZODIAZEPINES POSITIVE (Negative); COCAINE Negative (Negative); METHADONE Negative (Negative); OPIATES POSITIVE (Negative); PCP Negative (Negative); THC Negative (Negative)
[2016-08-18 21:06] LABS: HEMATOCRIT 33.8 % (42.0-52.0); HEMOGLOBIN 11.3 gm/dL (14.0-18.0); MCH 29.3 pg (26.0-34.0); MCHC 33.6 g/dL (28.0-37.0); MCV 87.2 fL (80.0-100.0); RBC 3.87 mil/uL (4.50-6.00); RDW 27.6 % (10.5-14.5); WBC 5.6 thou/uL (4.0-11.0)
[2016-08-18 21:17] LABS: ANION GAP 9 mmol/L (7-16); BUN 12 mg/dL (7-18); CALCIUM 8.5 mg/dL (8.5-10.1); CHLORIDE 107 mmol/L (98-107); CO2 24 mmol/L (21-32); CREATININE 1.1 mg/dL (0.7-1.3); GLUCOSE 86 mg/dL (74-106); POTASSIUM 3.7 mmol/L (3.5-5.1); SALICYLATE 3.1 mg/dL (2.8-20.0); SODIUM 140 mmol/L (136-145)
[2016-08-18 21:28] LABS: ACETAMINOPHEN < 2 ug/mL (10-30)
== END 2016-08-19 01:53 ==
LOC: ER 19:21
PROVIDERS: Physician Assistant
DX: R45.851 Suicidal ideations (principal); F32.9 Major depressive disorder, single episode, unspecified; I48.91 Unspecified atrial fibrillation; I10 Essential (primary) hypertension; F41.9 Anxiety disorder, unspecified; I25.2 Old myocardial infarction; K21.9 Gastro-esophageal reflux disease without esophagitis; I73.9 Peripheral vascular disease, unspecified; F19.10 Other psychoactive substance abuse, uncomplicated; F17.210 Nicotine dependence, cigarettes, uncomplicated; F10.99 Alcohol use, unspecified with unspecified alcohol-induced disorder; Z86.73 Personal history of transient ischemic attack (TIA), and cerebral infarction without residual deficits; Z90.89 Acquired absence of other organs; Z90.49 Acquired absence of other specified parts of digestive tract; Z95.5 Presence of coronary angioplasty implant and graft; Z88.0 Allergy status to penicillin; Z88.8 Allergy status to other drugs, medicaments and biological substances

== ENCOUNTER 2016-08-21 22:04 | Emergency (ER) | payer OTHER ==
[~2016-08-21] VITALS: Ht 182.9 cm; Wt 97.5 kg
--- NOTE | ~2016-08-21 | EKG ---
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 : 1970 Requested By: Ben Lemon Order Number: [id number] MD: Juan Antonio Plasencia Measurements Intervals [place] Rate: 107 P: 42 [place]: 130 QRS: 42 QRSD: 87 T: 61 QT: 317 QTc: 423 Interpretive Statements Sinus tachycardia Otherwise no significant abnormality Compared to ECG 08/18/2016 20:04:06 Sinus tachycardia is now present Electronically Signed On 08-22-2016 8:15:50 CDT by Juan Antonio Plasencia [email or web address] <ELECTRONICALLY SIGNED> By: Juan Antonio Plasencia MD, [facility] 08/22/16 0815 2203 02 Juan Antonio Plasencia MD, FACC /EPI
[~2016-08-21 22:04] MED LIST changes: +PAXIL10 MG PO
[2016-08-21 22:34] LABS: HEMATOCRIT 35.3 % (42.0-52.0); HEMOGLOBIN 11.6 gm/dL (14.0-18.0); MCH 29.1 pg (26.0-34.0); MCHC 32.7 g/dL (28.0-37.0); MCV 88.9 fL (80.0-100.0); PLATELET COUNT 292 thou/uL (150-400); RBC 3.97 mil/uL (4.50-6.00); RDW 27.1 % (10.5-14.5); WBC 6.9 thou/uL (4.0-11.0)
[2016-08-21 22:36] LABS: MANUAL DIFF YES
[2016-08-21 22:40] LABS: ANION GAP 13 mmol/L (7-16); BUN 12 mg/dL (7-18); CALCIUM 8.8 mg/dL (8.5-10.1); CHLORIDE 109 mmol/L (98-107); CO2 22 mmol/L (21-32); CREATININE 1.2 mg/dL (0.7-1.3); GLUCOSE 92 mg/dL (74-106); POTASSIUM 4.2 mmol/L (3.5-5.1); SODIUM 144 mmol/L (136-145)
[2016-08-21 22:52] LABS: NT-PRO BRAIN NAT PEPTIDE 99 pg/mL (<300); TROPONIN-I < 0.04 ng/mL (<0.04-0.07)
[2016-08-21 23:24] LABS: ANISOCYTOSIS 2+; ATYPICAL LYMPHS 1 %; TOTAL CELL COUNT 100
[2016-08-21 23:27] LABS: POLYCHROMASIA 1+
[2016-08-22] MEDS ORDERED: WELLBUTRIN 75 M75 M1 ×2 (00:05→00:06)
[2016-08-22] MEDS ORDERED: PROZAC20 MG (00:08)
== END 2016-08-22 01:03 | disposition home or self-care (01) ==
LOC: ER 22:04
PROVIDERS: Physician Assistant
DX: R07.89 Other chest pain (principal); I10 Essential (primary) hypertension; F32.9 Major depressive disorder, single episode, unspecified; F41.9 Anxiety disorder, unspecified; K21.9 Gastro-esophageal reflux disease without esophagitis; I25.2 Old myocardial infarction; F10.99 Alcohol use, unspecified with unspecified alcohol-induced disorder; I48.91 Unspecified atrial fibrillation; Z98.890 Other specified postprocedural states; Z86.73 Personal history of transient ischemic attack (TIA), and cerebral infarction without residual deficits; Z95.5 Presence of coronary angioplasty implant and graft; Z87.891 Personal history of nicotine dependence; Z86.718 Personal history of other venous thrombosis and embolism; Z88.1 Allergy status to other antibiotic agents; Z88.8 Allergy status to other drugs, medicaments and biological substances

== ENCOUNTER 2017-03-26 21:56 | Emergency (ER) | payer OTHER ==
[~2017-03-26] VITALS: Ht 182.9 cm; Wt 99.8 kg
--- NOTE | ~2017-03-26 | EKG ---
[place] [address] [facility] [place] [address] ELECTROCARDIOGRAM REPORT Name: JUAN ANTONIO MUSTAFA Room #: 170-2 ADM IN M.R.#: [id number] Admission: 03/26/17 Attend Phys: Lairssa Miles Discharge: Date of : 66 Report #: [id number] THIS REPORT FOR: //name// [facility] ED Test Date: 2017-03-26 Test Time: 22:15:33 Pat Name: JUAN ANTONIO VICENTETANIA Department: Room: 170 Gender: M Unit Aid: JOSÉ : 1970 Requested By: Theodore Gallagher Order Number: [id number] MD: Juan Antonio Plasencia Measurements Intervals [place] Rate: 110 P: 59 ME: 127 QRS: 38 QRSD: 88 T: 78 QT: 304 QTc: 412 Interpretive Statements Sinus tachycardia Poor R wave progression Compared to ECG 08/21/2016 22:03:34 No significant changes Electronically Signed On 03-27-2017 7:34:33 FLIGHT DYNAMICIST by Juan Antonio Plasencia [email or web address] <ELECTRONICALLY SIGNED> By: Juan Antonio Plasencia MD, [facility] 03/27/17 0734 D: 01/2214 14 Juan Antonio Plasencia MD, FACC /EPI
[~2017-03-26 21:56] MED LIST changes: +PROZAC20 MG; +WELLBUTRIN 75 M75 M1
[2017-03-26 22:09] VITALS: BP 145/99
[2017-03-26 22:51] LABS: HEMATOCRIT 44.2 % (42.0-52.0); HEMOGLOBIN 15.2 gm/dL (14.0-18.0); MCH 32.5 pg (26.0-34.0); MCHC 34.5 g/dL (28.0-37.0); MCV 94.3 fL (80.0-100.0); RBC 4.69 mil/uL (4.50-6.00); WBC 12.7 thou/uL (4.0-11.0)
[2017-03-26 22:58] LABS: ANION GAP 11 mmol/L (7-16); BUN 13 mg/dL (7-18); CHLORIDE 104 mmol/L (98-107); CO2 24 mmol/L (21-32); GLUCOSE 97 mg/dL (74-106); POTASSIUM 4.1 mmol/L (3.5-5.1); SODIUM 139 mmol/L (136-145)
[2017-03-26 23:08] LABS: TROPONIN-I < 0.04 ng/mL (<0.06)
[2017-03-27 05:53] LABS: HEMATOCRIT 40.7 % (42.0-52.0); HEMOGLOBIN 13.8 gm/dL (14.0-18.0); MCH 32.3 pg (26.0-34.0); MCHC 33.9 g/dL (28.0-37.0); MCV 95.2 fL (80.0-100.0); RBC 4.28 mil/uL (4.50-6.00); RDW 14.6 % (10.5-14.5); WBC 8.9 thou/uL (4.0-11.0)
[2017-03-27 05:56] LABS: ANION GAP 5 mmol/L (7-16); BUN 15 mg/dL (7-18); CALCIUM 8.6 mg/dL (8.5-10.1); CHLORIDE 108 mmol/L (98-107); CO2 28 mmol/L (21-32); GLUCOSE 88 mg/dL (74-106); SODIUM 141 mmol/L (136-145)
[2017-03-27 06:05] LABS: TROPONIN-I < 0.04 ng/mL (<0.06)
[2017-03-27 09:23] VITALS: BP 101/74
== END 2017-03-27 09:25 | disposition still patient (30) ==
LOC: ER 21:56 → EROBS 23:43 → ER 23:43
PROVIDERS: Emergency Medicine; Nurse Practitioner Family
DX: R07.9 Chest pain, unspecified (principal)